=== PATIENT | male | born 1960 | race Caucasian/White ===

== ENCOUNTER 2022-04-18 10:24 | Outpatient (CLI) | payer OTHER, SELFPAY ==
[2022-04-18 13:16] LABS: Albumin* 4.6 g/dL (3.3-5.0); Chloride* 112 mmol/L (96-114)
[2022-04-18 13:17] LABS: Potassium* 4.2 mmol/L (3.6-5.1); Sodium* 143 mmol/L (135-149)
[2022-04-18 13:19] LABS: Alkaline Phosphatase* 58 U/L (40-150); Aspartate Amino Transferase* 27 U/L (12-35); Blood Urea Nitrogen* 14 mg/dL (7-30); Carbon Dioxide* 21 mmol/L (20-32); Creatinine* 0.9 mg/dL (0.5-1.5); Estimated Glomerular Filt Rate 95 ml/min; Glucose* 101 mg/dL (60-115); Total Protein* 7.1 g/dL (6.0-8.3)
[2022-04-18 13:20] LABS: Alanine Aminotransferase* 27 U/L (4-50); Calcium* 9.1 mg/dL (8.4-10.6); HDL Cholesterol* 54 mg/dL (>=40); Triglycerides* 80 mg/dL (40-149)
[2022-04-18 14:53] LABS: PSA Screen* 1.56 ng/mL (0.10-4.00)
[2022-04-19 18:53] LABS: Cholesterol* 149 mg/dL (90-199); LDL Cholesterol Calculated 79 mg/dL (<100)
== END 2022-04-18 10:25 | disposition home or self-care (01) ==
PROVIDERS: PCP Family Medicine; Visit Provider Family Medicine
DX: Z00.00 Encounter for general adult medical examination without abnormal findings (principal); I10 Essential (primary) hypertension; Z13.6 Encounter for screening for cardiovascular disorders; Z12.5 Encounter for screening for malignant neoplasm of prostate
CPT/HCPCS: 80053; 80061; 84153

== ENCOUNTER 2022-12-04 11:15 | Outpatient (RCR) | payer OTHER, SELFPAY | END 2023-01-02 11:54 | disposition home or self-care (01) | PROVIDERS: PCP Family Medicine; Visit Provider Family Medicine | DX: M25.552 Pain in left hip (principal); M25.511 Pain in right shoulder; M25.512 Pain in left shoulder; Z74.09 Other reduced mobility; Z51.89 Encounter for other specified aftercare | CPT/HCPCS: 97110; 97162 ==

== ENCOUNTER 2024-02-18 09:04 | Outpatient (CLI) | payer MEDICARE, SELFPAY | END 2024-02-18 09:05 | disposition home or self-care (01) | LOC: NFLDREF 02-21 04:08 | PROVIDERS: PCP Family Medicine; Referring Provider Family Medicine; Visit Provider Family Medicine | DX: Z13.1 Encounter for screening for diabetes mellitus (principal); Z12.5 Encounter for screening for malignant neoplasm of prostate; Z13.6 Encounter for screening for cardiovascular disorders | CPT/HCPCS: 80053; 80061; G0103 ==

== ENCOUNTER 2024-09-02 09:03 | Outpatient (CLI) | payer MEDICARE, SELFPAY | END 2024-09-02 09:04 | disposition home or self-care (01) | LOC: NFLDREF 09-08 17:54 | PROVIDERS: PCP Family Medicine; Referring Provider Family Medicine; Visit Provider Family Medicine | DX: E78.00 Pure hypercholesterolemia, unspecified (principal); R97.20 Elevated prostate specific antigen [PSA]; Z12.5 Encounter for screening for malignant neoplasm of prostate | CPT/HCPCS: 80061; G0103 ==

== ENCOUNTER 2025-03-24 08:10 | Outpatient (CLI) | payer MEDICARE, SELFPAY | END 2025-03-24 08:11 | disposition home or self-care (01) | LOC: NFLDREF 03-29 20:57 | PROVIDERS: PCP Family Medicine; Referring Provider Family Medicine; Visit Provider Family Medicine | DX: Z00.00 Encounter for general adult medical examination without abnormal findings (principal); E78.00 Pure hypercholesterolemia, unspecified | CPT/HCPCS: 80048; 80061; G0103 ==

== ENCOUNTER 2025-03-27 12:05 | Outpatient (CLI) | payer MEDICARE, SELFPAY | END 2025-03-27 12:06 | disposition home or self-care (01) | LOC: LKVREF 12:06 | PROVIDERS: PCP Family Medicine; Visit Provider Family Medicine | DX: R03.0 Elevated blood-pressure reading, without diagnosis of hypertension (principal); E78.00 Pure hypercholesterolemia, unspecified; R73.9 Hyperglycemia, unspecified; E66.811 Obesity, class 1; Z68.33 Body mass index [BMI] 33.0-33.9, adult | CPT/HCPCS: 83525 ==